=== PATIENT | female | born 1970 | race American Indian/Alaskan Native ===

== ENCOUNTER 2016-04-07 17:34 | Emergency (ER) | payer OTHER ==
--- NOTE | 2016-04-07 18:52 | Emergency Department Report ---
Chief Complaint: Chest Pain Stated Complaint: ASTHMA/WHEEZING Time Seen by Provider: 04/07/16 18:51 - HPI History of Present Illness: 45 year old female presents with chest pressure substernally. states that she was seen and treated for asthmatic bronchitis with steroids, abx and inhaler. states cough improved but pressure remains. denies exogenous estrogen, cigarette use, long trips. - Exam Vital Signs: Vital Signs 04/07/16 18:12 Temperature 98.6 F Pulse Rate 78 Respiratory 18 Rate Blood Pressure 117/83 O2 Sat by Pulse 100 Oximetry Physical Exam: patient doesnt appear distressed lungs clear RRR MSE screening note: Focused history and physical exam performed. Due to findings the following was ordered: ED Disposition for MSE Condition: Stable
[2016-04-07 19:26] LABS: Basophils % (Auto) 1.1 % (0.0-1.8); Eosinophils % (Auto) 2.7 % (0.0-4.3); Hematocrit 38.3 % (30.3-42.9); Hemoglobin 12.9 gm/dl (10.1-14.3); Mean Corpuscular HGB Conc 34 % (30-34); Mean Corpuscular Hemoglobin 30 pg (28-32); Mean Corpuscular Volume 88 fl (79-97); Platelet Count 182 K/mm3 (140-440); Red Blood Count 4.36 M/mm3 (3.65-5.03); Red Cell Distribution Width 13.5 % (13.2-15.2)
[2016-04-07 19:49] LABS: Alanine Aminotransferase 27 units/L (7-56); Albumin/Globulin Ratio 1.4 %; Alkaline Phosphatase 47 units/L (35-129); BUN/Creatinine Ratio 18.33; Bilirubin,Total < 0.2 mg/dL (0.1-1.2); Blood Urea Nitrogen 11 mg/dL (7-17); Calcium 8.8 mg/dL (8.4-10.2); Carbon Dioxide 24 mmol/L (22-30); Chloride 102.3 mmol/L (98-107); Glucose 94 mg/dL (65-100); Potassium 4.1 mmol/L (3.6-5.0); Sodium 139 mmol/L (137-145); Total Protein 6.8 g/dL (6.3-8.2)
[2016-04-07 20:05] LABS: Anion Gap 17 mmol/L
[2016-04-08] MEDS ORDERED: PEPCID PO ONE (03:00)
[2016-04-08] MEDS ORDERED: BENADRYL PO ONE ×2 (03:00→03:03)
[2016-04-08] MEDS ORDERED: PEPCID ONE (03:03)
[2016-04-08] MEDS ORDERED: DELTASONE PO ONE (06:51)
[2016-04-08] MEDS ORDERED: DUONEB 0.5 MG-3 MG/3 ML SOLN IH ONE (06:51)
[2016-04-08] MEDS ORDERED: TORADOL IM ONE (06:51)
[2016-04-08] MEDS ORDERED: MUCINEX ER PO ONE (06:51)
[2016-04-08] MEDS ORDERED: TESSALON PERLES PO ONE (06:51)
--- NOTE | 2016-04-08 07:06 | Emergency Department Report ---
HPI - General Chief Complaint: Chest Pain Time Seen by Provider: 04/08/16 06:17 - HPI HPI: The patient is a 45-year-old female presents for evaluation of chest pain and cough. The patient reports a nonproductive cough, moderate to severe, worse at nighttime for the past 2-3 weeks, and right-sided and midsternal chest pain for the same duration, constant throughout the day, pressure-like nighttime sharp in quality, 10 out of 10 in severity, exacerbated with coughing, and improved when not coughing. The patient denies fever, neck pain, parasthesias, dyspnea, hemoptysis, syncope, palpitations, dizziness, orthopnea, unilateral leg swelling , calf muscle pain. Patient also denies cocaine or other stimulant use, history of DVT or PE, recent immobilization, or history of cancer. ED Past Medical Hx - Past Medical History Hx Asthma: Yes Additional medical history: hypothyroidism,genital herpes - Surgical History Additional Surgical History: partial thyroidectomy - Social History Smoking Status: Former Smoker Substance Use Type: None - Medications Home Medications: Home Medications Medication Instructions Recorded Confirmed Last Taken Type ALBUTEROL Inhaler [ProAir HFA 2 puff IH QID PRN #1 inhalation 04/08/16 Unknown Rx Inhaler] Benzonatate [Tessalon Perles] 100 mg PO Q8HR #14 capsule 04/08/16 Unknown Rx Cyclobenzaprine HCl [Flexeril 5 MG 5 mg PO Q8HR PRN #15 tab 04/08/16 Unknown Rx TAB] Doxycycline Hyclate [Doxycycline 100 mg PO Q12HR #20 tab 04/08/16 Unknown Rx Hyclate TAB] guaiFENesin [Mucinex] 600 mg PO Q6HR #20 tab.er.12h 04/08/16 Unknown Rx ED Review of Systems ROS: Stated complaint: ASTHMA/WHEEZING Other details as noted in HPI Constitutional: denies: fever ENT: denies: throat or neck pain Respiratory: reports cough, denies: shortness of breath Cardiovascular: reports chest pain Endocrine: denies unexplained weight loss or gain Gastrointestinal: denies: abdominal pain, nausea Genitourinary: denies: dysuria Musculoskeletal: denies: leg swelling Skin: denies: rash Neurological: denies: headache Hematological/Lymphatic: denies: easy bleeding or easy bruising Psych: denies sadness or hopelessness Physical Exam - Physical Exam Vital Signs: Vital Signs 04/07/16 04/08/16 18:12 02:57 Temperature 98.6 F 97.8 F Pulse Rate 78 78 Respiratory 18 18 Rate Blood Pressure 117/83 116/84 O2 Sat by Pulse 100 100 Oximetry Physical Exam: General: well-nourished, well-developed, no acute distress Head: Normocephalic, atraumatic Eyes: normal sclera ENT: Mucous membranes are pink and moist Neck: trachea midline, neck supple, No neck stiffness, no cervical adenopathy Respiratory: Breath sounds equal bilaterally, no wheezing, rales, or rhonchi Cardio: S1 and S2 present, no murmurs, rubs, gallops, capillary refill is brisk Abdomen: Normoactive bowel sounds, soft abdomen, no rigidity, no guarding or rebound tenderness Chest WALL/Back: positive midsternal and right-sided tenderness to palpation of the chest wall present, no CVA tenderness with percussion Musc: No pitting edema Skin: No rash Neuro: no facial drooping, normal speech Psych: Normal affect ED Course Vital Signs 04/07/16 04/08/16 18:12 02:57 Temperature 98.6 F 97.8 F Pulse Rate 78 78 Respiratory 18 18 Rate Blood Pressure 117/83 116/84 O2 Sat by Pulse 100 100 Oximetry ED Medical Decision Making - Lab Data Result diagrams: 04/07/16 19:16 04/07/16 19:16 - Medical Decision Making The patient was seen and examined by myself. The patient is placed on a shove up and continuous pulse ox. On initial evaluation, the patient was found to be in no distress. EKG was negative for findings suggestive of acute cardiac infarct. Labs and imaging are obtained. The patient is given IM dose of Toradol for her pain. She is given Tessalon Perles for cough. Chest x-ray is negative for pneumothorax, focal consolidation, pulmonary vascular congestion , pleural effusion, or other obvious acute cardiopulmonary disease process. Lab results were non-concerning including neg preg test, and nml levels of troponin, WBC, hemoglobin, hematocrit, electrolytes, renal function. The patient was reevaluated and reported that their symptoms were markedly improved. As the patient has a BAMBI risk score less than 2, and a well's score less than 2, and is PERC negative as well, the patient is at low risk of ACS or pulmonary emboli etiology of their symptoms. The patient is stable for discharge with outpatient follow-up. The patient is given follow-up and return instructions. The patient expressed understanding and agreed with the plan. The patient is discharged in stable condition. Critical care attestation.: If time is entered above; I have spent that time in minutes in the direct care of this critically ill patient, excluding procedure time. ED Disposition Clinical Impression: Acute chest pain Acute bronchitis Qualifiers: Bronchitis organism: unspecified organism Qualified Code(s): J20.9 - Acute bronchitis, unspecified Disposition: DISCHARGED TO HOME OR SELFCARE Is pt being admited?: No Does the pt Need Aspirin: No Condition: Stable Instructions: Chest Pain (ED), Acute Bronchitis (ED), Costochondritis (ED) Prescriptions: Doxycycline Hyclate [Doxycycline Hyclate TAB] 100 mg PO Q12HR #20 tab Cyclobenzaprine HCl [Flexeril 5 MG TAB] 5 mg PO Q8HR PRN #15 tab PRN Reason: Pain guaiFENesin [Mucinex] 600 mg PO Q6HR #20 tab.er.12h ALBUTEROL Inhaler [ProAir HFA Inhaler] 2 puff IH QID PRN #1 inhalation PRN Reason: Shortness Of Breath Benzonatate [Tessalon Perles] 100 mg PO Q8HR #14 capsule Referrals: PRIMARY CARE, [Primary Care Provider] - 3-5 Days Time of Disposition: 06:55
--- NOTE | 2016-04-08 07:16 | XRay Report ---
CHEST 2 VIEWS INDICATION: Chest pressure. COMPARISON: None similar at this institution. FINDINGS: PA and lateral chest radiographs demonstrate normal cardiomediastinal silhouette. Clear lungs. Intact bones. CONCLUSION: No acute disease in the chest. Thank you for the opportunity to participate in this patient's care.
[2016-04-08 08:44] VITALS: BP 102/67
== END 2016-04-08 08:43 | disposition home or self-care (01) ==
LOC: ED 17:34
DX: R07.9 Chest pain, unspecified (principal); J20.9 Acute bronchitis, unspecified; J45.909 Unspecified asthma, uncomplicated; E03.9 Hypothyroidism, unspecified; Z87.891 Personal history of nicotine dependence
CPT/HCPCS: 36415; 71020; 80053; 81025; 84484; 85025; 93005; 93010; 96372; 99284; J1885; J7512

== ENCOUNTER 2016-09-14 04:09 | Emergency (ER) | payer OTHER ==
[2016-09-14 05:28] LABS: Basophils % (Auto) 0.4 % (0.0-1.8); Eosinophils % (Auto) 1.6 % (0.0-4.3); Hemoglobin 12.9 gm/dl (10.1-14.3); Mean Corpuscular HGB Conc 33 % (30-34); Mean Corpuscular Hemoglobin 29 pg (28-32); Mean Corpuscular Volume 88 fl (79-97); Platelet Count 206 K/mm3 (140-440); Red Blood Count 4.43 M/mm3 (3.65-5.03); Red Cell Distribution Width 13.5 % (13.2-15.2); White Blood Count 3.9 K/mm3 (4.5-11.0)
[2016-09-14 05:51] LABS: Anion Gap 18 mmol/L; Blood Urea Nitrogen 9 mg/dL (7-17); Calcium 9.2 mg/dL (8.4-10.2); Carbon Dioxide 26 mmol/L (22-30); Chloride 101.9 mmol/L (98-107); Glucose 84 mg/dL (65-100); Potassium 4.2 mmol/L (3.6-5.0); Sodium 142 mmol/L (137-145)
[2016-09-14 07:32] LABS: Bacteria,Urine 1+ /HPF (Negative); Bilirubin,Urine NEG (Negative); Blood,Urine NEG (Negative); Ketones,Urine NEG (Negative); Leukocyte Esterase,Urine NEG (Negative); Mucus,Urine FEW /HPF; Nitrite,Urine NEG (Negative); Protein,Urine <15 mg/dL mg/dL (Negative); Urobilinogen,Urine < 2.0 mg/dL (<2.0); WBC,Urine < 1.0 /HPF (0.0-6.0)
--- NOTE | 2016-09-14 08:13 | XRay Report ---
ROUTINE CHEST, TWO VIEWS: HISTORY: Hypertension. The trachea, heart, mediastinal contour, lung hair and bony thorax are unremarkable. IMPRESSION: Unremarkable chest x-ray. No change since 04/07/16.
--- NOTE | 2016-09-14 08:26 | Emergency Department Report ---
ED Chest Pain HPI - General Chief Complaint: Chest Pain Stated Complaint: CHEST PAIN Time Seen by Provider: 09/14/16 06:44 Source: patient Mode of arrival: Ambulatory Limitations: No Limitations - History of Present Illness MD Complaint: chest pain -: Gradual Onset: during rest Pain Location: substernal Pain Radiation: none Severity: mild Severity scale (0 -10): 2 Quality: aching Consistency: intermittent Improves With: nothing Worsens With: nothing re: denies: nausea, vomting, diaphoresis, dyspnea, sense of impending doom Other Symptoms: denies: cough, fever, syncope, rash, acid taste in mouth, leg swelling, palpitations, burping - Related Data Previous Rx's Medication Instructions Recorded Last Taken Type ALBUTEROL Inhaler [ProAir HFA 2 puff IH QID PRN #1 inhalation 04/08/16 Unknown Rx Inhaler] Benzonatate [Tessalon Perles] 100 mg PO Q8HR #14 capsule 04/08/16 Unknown Rx Cyclobenzaprine HCl [Flexeril 5 MG 5 mg PO Q8HR PRN #15 tab 04/08/16 Unknown Rx TAB] Doxycycline Hyclate [Doxycycline 100 mg PO Q12HR #20 tab 04/08/16 Unknown Rx Hyclate TAB] guaiFENesin [Mucinex] 600 mg PO Q6HR #20 tab.er.12h 04/08/16 Unknown Rx predniSONE [Deltasone] 20 mg PO QDAY #5 tab 04/08/16 Unknown Rx Allergies Allergy/AdvReac Type Severity Reaction Status Date / Time erythromycin base Allergy Itching Verified 04/07/16 18:18 oxycodone Allergy Rash Verified 04/07/16 18:18 Heart Score - HEART Score History: Slightly suspicious EKG: Normal Age: < 45 Risk factors: No known risk factors Troponin: < normal limit HEART Score: 0 ED Review of Systems ROS: Stated complaint: CHEST PAIN Other details as noted in HPI Other: GENERAL: No weight change, fatigue, weakness, fever, chills, or night sweats SKIN: No changes in skin or hair, no itching, no rashes, no jaundice HEAD: No trauma, headache, or visual changes EYES: No blurriness, tearing, itching, acute visual loss, conjunctival discoloration, or scleral icterus EARS: No hearing loss, tinnitus, vertigo, or earache NOSE: No rhinorrhea, stuffiness, sneezing, itching, or epistaxis MOUTH: No bleeding gums, hoarseness, sore throat, or swelling CARDIAC: No new murmur, chest pain, palpitations, dyspnea on exertion, orthopnea , PND, or edema RESPIRATORY: No shortness of breath, wheeze, cough, sputum production, hemoptysis, pneumonia, asthma, bronchitis, or emphysema GI: No change in appetite, nausea, vomiting, dysphagia, change in bowel frequency, diarrhea, constipation, bleeding, hematemesis, melena, hematochezia, or abdominal pain URINARY: No frequency, urgency, polyuria, dysuria, hematuria, or incontinence MUSCULOSKELETAL: No muscle weakness, joint stiffness, decrease in range of motion, redness, swelling, tenderness NEUROLOGIC: No loss of sensation, numbness, tingling, tremors, weakness, paralysis, seizures HEMATOLOGIC: No anemia, easy bruising, bleeding, petechiae, or purpura ENDOCRINE: No hot or cold intolerance, sweating, polyuria, polydipsia or, polyphagia no thyroid problems PSYCHIATRIC: No change in mood, no anxiety, no depression ED Past Medical Hx - Past Medical History Previous Medical History?: Yes Hx Asthma: Yes Additional medical history: hypothyroidism,genital herpes - Surgical History Additional Surgical History: partial thyroidectomy - Social History Smoking Status: Unknown if ever smoked - Medications Home Medications: Home Medications Medication Instructions Recorded Confirmed Last Taken Type ALBUTEROL Inhaler [ProAir HFA 2 puff IH QID PRN #1 inhalation 04/08/16 Unknown Rx Inhaler] Benzonatate [Tessalon Perles] 100 mg PO Q8HR #14 capsule 04/08/16 Unknown Rx Cyclobenzaprine HCl [Flexeril 5 MG 5 mg PO Q8HR PRN #15 tab 04/08/16 Unknown Rx TAB] Doxycycline Hyclate [Doxycycline 100 mg PO Q12HR #20 tab 04/08/16 Unknown Rx Hyclate TAB] guaiFENesin [Mucinex] 600 mg PO Q6HR #20 tab.er.12h 04/08/16 Unknown Rx predniSONE [Deltasone] 20 mg PO QDAY #5 tab 04/08/16 Unknown Rx ED Physical Exam - General Limitations: No Limitations - Other Other exam information: GENERAL: Patient in no acute distress HEAD: Normocephalic, atraumatic EYES: PERRLA, EOM intact, no scleral icterus, no papilledema, no conjunctival hemorrhage, visual hair and acuity wnl, NOSE: No tenderness, discharge, sinus tenderness MOUTH: No erythema, bleeding, exudate HEART: Regular rate and rhythm, no murmur, S1-S2 are auscultated, pulses are symmetric LUNGS: No wheezing, rales, rhonchi, bilateral breath sounds ABDOMEN: Normal bowel sounds, no tenderness, no rebound, no guarding, no masses , no CVA tenderness MUSCULOSKELETAL: Normal joint range of motion, no redness, no swelling, no tenderness NEUROLOGIC: GCS 15, Alert and Oriented x3, Cranial nerves intact, normal sensation, normal strength, normal gait, no cerebellar deficit PSYCHIATRIC: No homicidal or suicidal ideation, no anxiety, no depression, no hallucinations SKIN: Skin is warm and dry, no wounds, no rashes ED Course Vital Signs 09/14/16 09/14/16 09/14/16 04:41 07:41 08:10 Temperature 97.8 F 98 F Pulse Rate 82 68 Respiratory 18 11 L Rate Blood Pressure 124/79 Blood Pressure 116/78 [Left] O2 Sat by Pulse 97 97 Oximetry 09/14/16 09/14/16 08:12 08:30 Temperature Pulse Rate 87 63 Respiratory 10 L Rate Blood Pressure 106/70 Blood Pressure [Left] O2 Sat by Pulse Oximetry BAMBI score - Bambi Score Age > 65: (0) No Aspirin use within the Past 7 Days: (0) No 3 or more CAD Risk Factors: (0) No 2 or more Angina events in past 24 hrs: (0) No Known CAD with more than 50% Stenosis: (0) No Elevated Cardiac Markers: (0) No ST Deviation Greater than 0.5mm: (0) No BAMBI Score: 0 ED Medical Decision Making - Lab Data Result diagrams: 09/14/16 05:13 09/14/16 05:13 - EKG Data When compared to previous EKG there are: no significant change - Radiology Data Radiology results: report reviewed - Medical Decision Making Patient comfortable. Updated with results. Plan discharge with outpatient follow-up. Patient agrees with plan and will return if symptoms worsen. Critical care attestation.: If time is entered above; I have spent that time in minutes in the direct care of this critically ill patient, excluding procedure time. ED Disposition Clinical Impression: Chest pain in adult Disposition: DC-01 TO HOME OR SELFCARE Is pt being admited?: No Condition: Stable Instructions: Chest Pain (ED) Referrals: PRIMARY CAREMD [Primary Care Provider] - 3-5 Days IMTIAZ NGUYỄN MD [Staff Physician] - 3-5 Days Time of Disposition: 08:26
[2016-09-14 08:41] VITALS: BP 106/70
== END 2016-09-14 08:53 | disposition home or self-care (01) ==
LOC: ED 04:09
DX: R07.2 Precordial pain (principal); J45.909 Unspecified asthma, uncomplicated; E03.9 Hypothyroidism, unspecified; Z88.1 Allergy status to other antibiotic agents; Z88.8 Allergy status to other drugs, medicaments and biological substances
CPT/HCPCS: 36415; 71020; 80048; 81001; 81025; 84484; 85025; 85379; 93005; 93010

== ENCOUNTER 2016-11-13 18:06 | Emergency (ER) | payer OTHER ==
[2016-11-13 18:51] LABS: Basophils % (Auto) 1.3 % (0.0-1.8); Eosinophils % (Auto) 1.6 % (0.0-4.3); Hematocrit 39.4 % (30.3-42.9); Hemoglobin 13.1 gm/dl (10.1-14.3); Mean Corpuscular HGB Conc 33 % (30-34); Mean Corpuscular Hemoglobin 30 pg (28-32); Mean Corpuscular Volume 89 fl (79-97); Platelet Count 201 K/mm3 (140-440); Red Blood Count 4.44 M/mm3 (3.65-5.03); Red Cell Distribution Width 13.5 % (13.2-15.2); White Blood Count 6.5 K/mm3 (4.5-11.0)
[2016-11-13 19:31] LABS: Anion Gap 17 mmol/L; BUN/Creatinine Ratio 18.33; Blood Urea Nitrogen 11 mg/dL (7-17); Calcium 8.6 mg/dL (8.4-10.2); Carbon Dioxide 23 mmol/L (22-30); Chloride 103.4 mmol/L (98-107); Glucose 79 mg/dL (65-100); Potassium 4.1 mmol/L (3.6-5.0); Sodium 139 mmol/L (137-145)
--- NOTE | 2016-11-13 23:59 | XRay Report ---
FINAL REPORT EXAM: XR CHEST ROUTINE 2V HISTORY: CHEST PAIN; COUGH TECHNIQUE: PA and lateral chest radiographs PRIORS: None. FINDINGS: No focal consolidations are seen in the lungs and there are no pleural effusions.The cardiomediastinal silhouette is within normal limits for size and contour. No acute osseous abnormality is identified. IMPRESSION: 1. No definite radiographic evidence of acute cardiopulmonary disease. 2. No focal infiltrate is identified.
[2016-11-14] MEDS ORDERED: DUONEB *Not for PRN Use IH ONE (00:37)
[2016-11-14] MEDS ORDERED: TORADOL IM ONE (00:37)
[2016-11-14] MEDS ORDERED: NORCO 5/325 PO ONE (00:41)
--- NOTE | 2016-11-14 00:52 | Emergency Department Report ---
HPI - General Chief Complaint: Chest Pain Time Seen by Provider: 11/14/16 00:24 - HPI HPI: This is a 46-year-old Afro-Stateless female presents the emergency department with complaint of right-sided chest wall pain with some radiation towards the back has been going on for the past 2-3 days. She's been having a mixed dry and productive cough. Patient says she has a history of chronic bronchitis and asthma and it keeps coming back. The pain worsens with certain movements and when she coughs. She has been trying to use her inhaler and nebulized breathing treatments without any relief. She denies any fever, nausea, vomiting or diaphoresis. She denies tobacco abuse. She has a history of this chronic bronchitis and asthma as well as hypothyroidism. She does not currently have a primary care physician. No recent travel or sick contacts at home. ED Past Medical Hx - Past Medical History Hx Asthma: Yes Additional medical history: hypothyroidism,genital herpes - Surgical History Additional Surgical History: partial thyroidectomy - Social History Smoking Status: Never Smoker Substance Use Type: None - Medications Home Medications: Home Medications Medication Instructions Recorded Confirmed Last Taken Type ALBUTEROL Inhaler [ProAir HFA 2 puff IH QID PRN #1 inhalation 04/08/16 Unknown Rx Inhaler] Cyclobenzaprine HCl [Flexeril 5 MG 5 mg PO Q8HR PRN #15 tab 04/08/16 Unknown Rx TAB] Doxycycline Hyclate [Doxycycline 100 mg PO Q12HR #20 tab 04/08/16 Unknown Rx Hyclate TAB] guaiFENesin [Mucinex] 600 mg PO Q6HR #20 tab.er.12h 04/08/16 Unknown Rx Benzonatate [Tessalon Perles] 100 mg PO Q8HR #14 capsule 11/14/16 Unknown Rx Ibuprofen [Motrin 600 MG tab] 600 mg PO Q8H PRN #20 tablet 11/14/16 Unknown Rx Ibuprofen [Motrin 800 MG tab] 800 mg PO Q8HR PRN #20 tablet 11/14/16 Unknown Rx guaiFENesin/CODEINE [Robitussin AC] 5 ml PO Q6H PRN #100 ml 11/14/16 Unknown Rx predniSONE [Deltasone] 20 mg PO QDAY #5 tab 11/14/16 Unknown Rx ED Review of Systems ROS: Stated complaint: CHEST PAIN Other details as noted in HPI Comment: All other systems reviewed and negative Constitutional: denies: chills, fever Eyes: denies: eye pain, eye discharge, vision change ENT: denies: ear pain, throat pain Respiratory: cough, shortness of breath, wheezing Cardiovascular: chest pain. denies: palpitations, edema Gastrointestinal: denies: abdominal pain, nausea, diarrhea Genitourinary: denies: urgency, dysuria, discharge Musculoskeletal: back pain. denies: arthralgia Skin: denies: rash, lesions Neurological: denies: headache, weakness, paresthesias Physical Exam - Physical Exam Vital Signs: Vital Signs 11/13/16 11/14/16 11/14/16 18:27 00:10 00:18 Temperature 98.4 F Pulse Rate 85 57 L Respiratory 20 15 17 Rate Blood Pressure 127/79 O2 Sat by Pulse 100 100 Oximetry Physical Exam: GENERAL: The patient is well-developed well-nourished. HEENT: Normocephalic. Atraumatic. Extraocular motions are intact. Patient has moist mucous membranes. Pupils equal reactive to light bilaterally. NECK: Supple. Trachea is midline. CHEST/LUNGS: Mild respiratory wheezing. No tachypnea. There is no respiratory distress noted. Chest pain is reproducible palpation of chest wall. Patient also appears to have chest pain with certain movements. HEART/CARDIOVASCULAR: Regular. There is no tachycardia. There is no gallop rub or murmur. ABDOMEN: Abdomen is soft, nontender. Patient has normal bowel sounds. There is no abdominal distention. SKIN: Skin is warm and dry. NEURO: The patient is awake, alert, and oriented. The patient is cooperative. The patient has no focal neurologic deficits. The patient has normal speech. MUSCULOSKELETAL: There is no tenderness or deformity. There is no limitation range of motion. There is no evidence of acute injury. BACK: No midline thoracic or lumbar tenderness to palpation or deformity. There is reproducible right-sided paraspinal tenderness to palpation. ED Course Vital Signs 11/13/16 11/14/16 11/14/16 18:27 00:10 00:18 Temperature 98.4 F Pulse Rate 85 57 L Respiratory 20 15 17 Rate Blood Pressure 127/79 O2 Sat by Pulse 100 100 Oximetry ED Medical Decision Making - Lab Data Result diagrams: 11/13/16 18:41 11/13/16 18:41 - EKG Data -: EKG Interpreted by Me EKG shows normal: sinus rhythm, axis, intervals, QRS complexes (Q waves to the septal leads), ST-T waves Rate: normal - EKG Data When compared to previous EKG there are: previous EKG unavailable Interpretation: other (Q waves to the septal leads) - Radiology Data Radiology results: image reviewed interpreted by me: Chest x-ray did not show any acute process. Heart is normal shape and size. No effusions. No pneumothorax. No signs of pneumonia seen. - Medical Decision Making 46-year-old female presents emergency Department with right-sided chest wall pain and right-sided back pain. She has mild wheezing. She has a history of bronchitis and this very well could be chronic bronchitis. She was given some steroids and a shot of Toradol. EKG does not show any signs of ST elevation ID , or dysrhythmia. Chest x-ray does not show any pneumonia or any other acute process. Patient is low on the heart score criteria. She has low on the [place]. She has a BAMBI score of 0. Negative d-dimer. She appears safe for discharge home at this time. Vital signs stable throughout her ED course. She was sent home with some Robitussin-AC and Tessalon Perles for her cough, prednisone for some mild bronchospasm and NSAIDs for her chest wall discomfort. She was offered a referral for cardiology but says she has already had a full cardiac workup in the past for the same pains and it was found to be noncardiac. - Differential Diagnosis costochondritis, pneumonia, ID, bronchitis Critical Care Time: No Critical care attestation.: If time is entered above; I have spent that time in minutes in the direct care of this critically ill patient, excluding procedure time. ED Disposition Clinical Impression: Bronchitis, Chest wall pain, Costochondritis Disposition: DC-01 TO HOME OR SELFCARE Is pt being admited?: No Condition: Stable Instructions: Chest Pain (ED), Costochondritis (ED), Chronic Bronchitis (ED) Additional Instructions: These follow-up with a primary care physician in the next few days. Return to the emergency department with any worsening of your symptoms or any acute distress. You've been prescribed a medication that is sedating. Therefore this medication cannot be mixed with alcohol, or taken prior to driving, working, or being responsible for children. Prescriptions: Benzonatate [Tessalon Perles] 100 mg PO Q8HR #14 capsule guaiFENesin/CODEINE [Robitussin AC] 5 ml PO Q6H PRN #100 ml PRN Reason: Cough Ibuprofen [Motrin 600 MG tab] 600 mg PO Q8H PRN #20 tablet PRN Reason: Pain Ibuprofen [Motrin 800 MG tab] 800 mg PO Q8HR PRN #20 tablet PRN Reason: Pain predniSONE [Deltasone] 20 mg PO QDAY #5 tab Referrals: IMTIAZ REESE MD [Staff Physician] - 3-5 Days PRIMARY CARE, [Primary Care Provider] - 3-5 Days MICHAEL REYES MD [Staff Physician] - 3-5 Days ANDREE CALLAWAY MD [Staff Physician] - 3-5 Days
[2016-11-14] MEDS ORDERED: DELTASONE PO ONE (01:33)
[2016-11-14] MEDS ORDERED: TESSALON PERLES PO ONE (01:53)
[2016-11-14 02:14] VITALS: BP 118/74
== END 2016-11-14 02:15 | disposition home or self-care (01) ==
LOC: ED 18:06
DX: J40 Bronchitis, not specified as acute or chronic (principal); M94.0 Chondrocostal junction syndrome [Tietze]; J45.909 Unspecified asthma, uncomplicated
CPT/HCPCS: 36415; 71020; 80048; 83690; 84484; 84703; 85025; 85379; 93005; 93010; 94640; 96372; 99285; J1885; J7512

== ENCOUNTER 2017-05-08 12:07 | Emergency (ER) | payer OTHER ==
--- NOTE | 2017-05-08 13:34 | Emergency Department Report ---
Chief Complaint: Neck Pain/Injury Stated Complaint: STIFF NECK Time Seen by Provider: 05/08/17 13:26 - HPI History of Present Illness: Pt is a 46 yo female who states she saw her doctor Dr Daryl Collado this morning who pt stated sent her here for a Ct . Pt states that she was has a history of viral meningitis. Pt states she had a fever yesterday but undocumented with a thermometer. Pt states she took Aspirin and had Meloxicam. Pt states she has stiff neck with pain in the back of her head to the bottom of her spine. Pt states her symptoms began 3 days ago. - ROS Review of Systems: ROS: all other systems reveiwed and neg except as noted per HPI PE: General : awake, alert in no acute distress neck: tenderness in post cspine about C4-C6; pt refused neck rom due to pain Heent: eomi, perrla, mmm Lungs: clear] Heart: rrr no m/g/r abd: soft, nd, nt +Bs, no peritoneal signs Neuro: awake, alert, oriented x3 CM 2-12 intact ; 5/5 strenght - Exam Vital Signs: Vital Signs 05/08/17 12:09 Temperature 97.5 F L Pulse Rate 67 Respiratory 18 Rate Blood Pressure 106/67 O2 Sat by Pulse 98 Oximetry Physical Exam: ROS: all other systems reveiwed and neg except as noted per HPI PE: General : awake, alert in no acute distress Heent: eomi, perrla, mmm Neck: limited rom due to pain; tenderness c spine midline c4-6 Lungs: clear] Heart: rrr no m/g/r abd: soft, nd, nt +Bs, no peritoneal signs Neuro: aaox3 cn 2-12 intact 5/5 strength gait: normal independently MSE screening note: Focused history and physical exam performed. Due to findings the following was ordered: ED Disposition for MSE Condition: Stable Referrals: PRIMARY CARE,MD [Primary Care Provider] - 3-5 Days
[2017-05-08 13:56] LABS: HCG Qualitative,Urine Negative (Negative)
[2017-05-08 14:56] LABS: Basophils # (Auto) 0.1 K/mm3 (0.0-0.1); Basophils % (Auto) 1.4 % (0.0-1.8); Eosinophils # (Auto) 0.1 K/mm3 (0.0-0.4); Eosinophils % (Auto) 2.1 % (0.0-4.3); Hematocrit 42.1 % (30.3-42.9); Hemoglobin 13.9 gm/dl (10.1-14.3); Lymphocytes # (Auto) 2.1 K/mm3 (1.2-5.4); Lymphocytes % (Auto) 40.1 % (13.4-35.0); Mean Corpuscular HGB Conc 33 % (30-34); Mean Corpuscular Hemoglobin 29 pg (28-32); Mean Corpuscular Volume 88 fl (79-97); Monocytes # (Auto) 0.3 K/mm3 (0.0-0.8); Monocytes % (Auto) 6.1 % (0.0-7.3); Platelet Count 208 K/mm3 (140-440); Red Cell Distribution Width 13.7 % (13.2-15.2)
[2017-05-08 15:13] LABS: Alanine Aminotransferase 24 units/L (7-56); Albumin 4.3 g/dL (3.9-5); BUN/Creatinine Ratio 18; Blood Urea Nitrogen 11 mg/dL (7-17); Calcium 9.1 mg/dL (8.4-10.2); Hemolysis Index 3
--- NOTE | 2017-05-08 15:46 | Cat Scan Report ---
FINAL REPORT EXAM: CT HEAD/BRAIN WO CON HISTORY: headache, neck stiffness TECHNIQUE: CT of the head was performed. No intravenous contrast was administered. PRIORS: None. FINDINGS: There is no evidence of intracranial hemorrhage. There is no edema, mass effect or midline shift. There are no abnormal extra-axial fluid collections. The ventricles are appropriate for brain volume. There is no skull fracture seen. The visualized aspects of the sinuses are clear. IMPRESSION: There is no acute intracranial abnormality identified.
[2017-05-08] MEDS ORDERED: XYLOCAINE 2% INFILTRATI ONE ×2 (22:48→22:55)
--- NOTE | 2017-05-08 23:07 | Emergency Department Report ---
HPI - General Chief Complaint: Neck Pain/Injury Time Seen by Provider: 05/08/17 13:26 - HPI HPI: Room 36 The patient's 47-year-old female presenting with chief complaint of headache. The patient states she's had an occipital headache for the past 2-3 weeks and just neck pain and pain radiating down her back. States ibuprofen helps initially but the pain returns. Patient denies blurred vision but admits to a subjective fever. The patient states her pain feels exactly the same way she felt in 2013 when she was diagnosed with viral meningitis. Patient denies any preceding trauma Location: Head, see above Duration: 2-3 weeks Quality: Pain Severity: 11/12 Modifying factors: [see above] Context: [see above] Mode of transportation: The patient drove herself to the emergency department but there are no visitors present ED Past Medical Hx - Past Medical History Hx Asthma: Yes Additional medical history: hypothyroidism,genital herpes - Surgical History Additional Surgical History: partial thyroidectomy - Family History Family history: no significant - Social History Smoking Status: Former Smoker (none 20 years) Substance Use Type: None (denies illicit drug use) - Medications Home Medications: Home Medications Medication Instructions Recorded Confirmed Last Taken Type ALBUTEROL Inhaler [ProAir HFA 2 puff IH QID PRN #1 inhalation 04/08/16 Unknown Rx Inhaler] Cyclobenzaprine HCl [Flexeril 5 MG 5 mg PO Q8HR PRN #15 tab 04/08/16 Unknown Rx TAB] Doxycycline Hyclate [Doxycycline 100 mg PO Q12HR #20 tab 04/08/16 Unknown Rx Hyclate TAB] guaiFENesin [Mucinex] 600 mg PO Q6HR #20 tab.er.12h 04/08/16 Unknown Rx Benzonatate [Tessalon Perles] 100 mg PO Q8HR #14 capsule 11/14/16 Unknown Rx Ibuprofen [Motrin 600 MG tab] 600 mg PO Q8H PRN #20 tablet 11/14/16 Unknown Rx Ibuprofen [Motrin 800 MG tab] 800 mg PO Q8HR PRN #20 tablet 11/14/16 Unknown Rx guaiFENesin/CODEINE [Robitussin AC] 5 ml PO Q6H PRN #100 ml 11/14/16 Unknown Rx predniSONE [Deltasone] 20 mg PO QDAY #5 tab 11/14/16 Unknown Rx Butalb/Acetamin/Caff 50-325-40 2 tab PO Q8HR PRN #20 tablet 05/09/17 Unknown Rx [Fioricet] ED Review of Systems ROS: Stated complaint: STIFF NECK Other details as noted in HPI Constitutional: fever (subjective) Eyes: denies: vision change Musculoskeletal: back pain Neurological: headache Physical Exam - Physical Exam Vital Signs: Vital Signs 05/08/17 12:09 Temperature 97.5 F L Pulse Rate 67 Respiratory 18 Rate Blood Pressure 106/67 O2 Sat by Pulse 98 Oximetry Physical Exam: GENERAL: The patient is well-developed well-nourished female lying on stretcher not appear to be in acute distress. [] HEENT: Normocephalic. Atraumatic. Extraocular motions are intact. Patient has moist mucous membranes. NECK: Supple. There is nuchal rigidity. There is no adenopathy noted. CHEST/LUNGS: There is no respiratory distress noted. HEART/CARDIOVASCULAR: Regular. Clear to auscultation.There is no tachycardia. There is no gallop rub or murmur. ABDOMEN: Abdomen is soft, nontender. Patient has normal bowel sounds. There is no abdominal distention. SKIN: There is no rash. There is no edema. There is no diaphoresis. NEURO: The patient is awake, alert, and oriented. The patient is cooperative. The patient has no focal neurologic deficits. The patient has normal speech MUSCULOSKELETAL: There is no evidence of acute injury. ED Course Vital Signs 05/08/17 12:09 Temperature 97.5 F L Pulse Rate 67 Respiratory 18 Rate Blood Pressure 106/67 O2 Sat by Pulse 98 Oximetry - Lumbar Puncture Consent Obtained: verbal consent Time Out Performed: Yes Indication for Procedure: headache Patient Position: Sitting Upright/Leaning F Skin Prep: Povidone-Iodine 1% Local Anesthetic Used: Lidocaine 1% Amount of anesthesia used (mls): 6 Spinal Needle Gauge: 20G Spinal Needle Length: 3.5in Interspace Used: L4-L5 Fluid Initially Obtained: clear Complications: none Patient Tolerated Procedure: no complications Additional Comments: CSF was obtained on second attempt ED Medical Decision Making - Lab Data Result diagrams: 05/08/17 14:44 05/08/17 14:44 Laboratory Tests 05/08/17 05/08/17 05/08/17 13:43 14:44 14:44 WBC 5.3 RBC 4.80 Hgb 13.9 Hct 42.1 MCV 88 MCH 29 MCHC 33 RDW 13.7 Plt Count 208 Lymph % (Auto) 40.1 H [place] % (Auto) 6.1 Eos % (Auto) 2.1 Baso % (Auto) 1.4 Lymph # 2.1 [place] # 0.3 Eos # 0.1 Baso # 0.1 Seg Neutrophils % 50.3 Seg Neutrophils # 2.7 Sodium 137 Potassium 4.1 Chloride 99.4 Carbon Dioxide 24 Anion Gap 18 BUN 11 Creatinine 0.6 L Estimated GFR > 60 BUN/Creatinine Ratio 18 Glucose 77 Calcium 9.1 Total Bilirubin 0.40 AST 21 ALT 24 Alkaline Phosphatase 47 Total Protein 7.2 Albumin 4.3 Albumin/Globulin Ratio 1.5 Urine HCG, Qual Negative CSF Appearance CSF Color CSF WBC CSF RBC CSF Pathologist Review CSF Glucose CSF Total Protein 05/08/17 05/08/17 22:55 22:55 WBC RBC Hgb Hct MCV MCH MCHC RDW Plt Count Lymph % (Auto) [place] % (Auto) Eos % (Auto) Baso % (Auto) Lymph # [place] # Eos # Baso # Seg Neutrophils % Seg Neutrophils # Sodium Potassium Chloride Carbon Dioxide Anion Gap BUN Creatinine Estimated GFR BUN/Creatinine Ratio Glucose Calcium Total Bilirubin AST ALT Alkaline Phosphatase Total Protein Albumin Albumin/Globulin Ratio Urine HCG, Qual CSF Appearance Clear Clear CSF Color Colorless Colorless CSF WBC 0 0 CSF RBC 0 CSF Pathologist Review C C CSF Glucose 69 CSF Total Protein 19 - Radiology Data Radiology results: report reviewed (CT head), image reviewed (CT head) FINAL REPORT EXAM: CT HEAD/BRAIN WO CON HISTORY: headache, neck stiffness TECHNIQUE: CT of the head was performed. No intravenous contrast was administered. PRIORS: None. FINDINGS: There is no evidence of intracranial hemorrhage. There is no edema, mass effect or midline shift. There are no abnormal extra-axial fluid collections. The ventricles are appropriate for brain volume. There is no skull fracture seen. The visualized aspects of the sinuses are clear. IMPRESSION: There is no acute intracranial abnormality identified. Transcribed By: RAJAT Dictated By: RAFI BLACKWOOD MD Electronically Authenticated By: RAFI BLACKWOOD MD Signed Date/Time: 05/08/17 1143 DD/ 1143 TD/TT: 05/08/17 1143 - Differential Diagnosis headache, meningitis, ICH, intracranial mass Critical care attestation.: If time is entered above; I have spent that time in minutes in the direct care of this critically ill patient, excluding procedure time. ED Disposition Clinical Impression: Headache, Meningismus Disposition: - TO HOME OR SELFCARE Is pt being admited?: No Does the pt Need Aspirin: No Condition: Stable Instructions: Acute Headache (ED) Additional Instructions: Return to the emergency department immediately should you develop worsening symptoms, fever, inability to tolerate food or liquid or any other concerns. Prescriptions: Butalb/Acetamin/Caff 50-325-40 [Fioricet] 2 tab PO Q8HR PRN #20 tablet PRN Reason: Headache Referrals: PRIMARY CARE, [Primary Care Provider] - 3-5 Days RONNY AMOS MD [Staff Physician] - [facility] (Dr. Amos is a neurologist. Please follow up with him for further evaluation) Time of Disposition: 01:15
[2017-05-09 00:09] LABS: Appearance,CSF Clear
[2017-05-09 00:12] LABS: Glucose,CSF 69 mg/dL
[2017-05-09 00:45] VITALS: BP 116/71
[2017-05-09 01:04] LABS: Total Cells Counted 0 /mm3; White Blood Cell,CSF 0 /mm3 (1-10)
[2017-05-09 01:05] LABS: Red Blood Cell,CSF 0 /mm3 (0-0); White Blood Cell,CSF 0 /mm3 (1-10)
[2017-05-09 01:39] LABS: Basophils CSF 0 %; Red Blood Cell,CSF 0 /mm3 (0-0)
== END 2017-05-09 01:22 | disposition home or self-care (01) ==
LOC: ED 12:07
DX: R29.1 Meningismus (principal); R51 Headache; E03.9 Hypothyroidism, unspecified; Z87.891 Personal history of nicotine dependence
CPT/HCPCS: 36415; 70450; 80053; 81025; 82947; 84160; 85025; 87116; 89051; 99284

== ENCOUNTER 2017-06-08 07:48 | Outpatient (CLI) | payer OTHER ==
--- NOTE | 2017-06-08 08:31 | XRay Report ---
ROUTINE CHEST, TWO VIEWS: HISTORY: Hypothyroidism. The trachea, heart, mediastinal contour, lung hair and bony thorax are unremarkable. IMPRESSION: Unremarkable chest x-ray.
== END 2017-06-08 07:49 | disposition home or self-care (01) ==
LOC: XRAY 07:48
PROVIDERS: ATTEND Family Medicine
DX: I10 Essential (primary) hypertension (principal); E04.1 Nontoxic single thyroid nodule; E03.9 Hypothyroidism, unspecified; Z90.89 Acquired absence of other organs
CPT/HCPCS: 71046

== ENCOUNTER 2017-06-09 07:09 | Outpatient (CLI) | payer OTHER ==
--- NOTE | 2017-06-09 10:57 | Ultrasound Report ---
Thyroid ultrasound: Hypothyroidism. The patient had a right thyroidectomy. Imaging of the left thyroid lobe and isthmus demonstrates that the left lobe measures approximately 11 x 14 x 34 mm. It is generally homogeneous except for a small circumscribed lesion measuring approximately 5.7 mm. The lesion contains both soft tissue density as well as a small cystic component. The soft tissue density however is predominantly vascular and may represent a vessel. The isthmus is unremarkable without thickness of 3 mm. Impression: No suspicious findings.
== END 2017-06-09 07:10 | disposition home or self-care (01) ==
LOC: US 07:09
PROVIDERS: ATTEND Family Medicine
DX: I10 Essential (primary) hypertension (principal); E03.9 Hypothyroidism, unspecified; E04.1 Nontoxic single thyroid nodule; Z90.89 Acquired absence of other organs
CPT/HCPCS: 76536